=== PATIENT | male | born 1965 | race Caucasian/White ===

== ENCOUNTER 2018-11-17 03:06 | Emergency (ER) | payer OTHER ==
[~2018-11-17] VITALS: Ht 170.2 cm; Wt 96.2 kg
[2018-11-17] MEDS ORDERED: ONDANSETRON HCL/PF 4 MG/2 ML VIAL ONE (03:40)
[2018-11-17 03:56] LABS: BASOPHILS # (AUTO) 0.1 /CMM (0.0-0.2); BASOPHILS % (AUTO) 0.7 % (0.0-2.0); EOSINOPHILS % (AUTO) 1.6 % (0.0-6.0); HEMATOCRIT 29 % (39-51); HEMOGLOBIN 9.8 g/dL (13.5-17.5); LYMPHOCYTES # (AUTO) 1.1 /CMM (0.8-4.8); LYMPHOCYTES % (AUTO) 10.6 % (20.0-44.0); MEAN CORPUSCULAR HGB CONC 34 g/dl (31.0-36.0); MEAN CORPUSCULAR VOLUME 90 fL (80-96); MONOCYTES # (AUTO) 0.5 /CMM (0.1-1.30); MONOCYTES % (AUTO) 4.5 % (2.0-12.0); NEUTROPHILS # (AUTO) 8.5 /CMM (1.8-8.9); NEUTROPHILS % (AUTO) 82.6 % (43.0-81.0); PLATELET COUNT (AUTO) 318 /CMM (150-450); RED BLOOD CELL COUNT(AUTO) 3.22 MIL/uL (4.5-6.0); WHITE BLOOD COUNT (AUTO) 10.3 K/uL (4.3-11.0)
--- NOTE | 2018-11-17 03:59 | NUR ---
resting in bed comfortably. reported a mild discomfort on his left breast area. no c/o n/v. on ongoing monitoring. vss. cups at the bed side
[2018-11-17] MEDS ORDERED: ONDANSETRON HCL/PF 4 MG/2 ML VIAL IVP ONE (04:00)
[2018-11-17] MEDS ORDERED: IV NS 0.9% 500 ML BAG IV ONE (04:00)
[2018-11-17 04:03] LABS: CALCIUM, SERUM 8.3 mg/dL (8.5-10.1); POTASSIUM 4.9 mmol/L (3.5-5.1)
[2018-11-17 04:04] LABS: APPEARANCE,URINE Clear (CLEAR); BILIRUBIN,URINE Negative (NEGATIVE); BLOOD, URINE Trace-intact Ery/uL (NEGATIVE); COLOR,URINE Yellow (YELLOW); KETONES,URINE Negative (NEGATIVE); LEUKOCYTE ESTERASE ,URINE Negative (NEGATIVE); NITRITE, URINE Negative (NEGATIVE); PROTEIN,URINE >=300 mg/dl (NEGATIVE); UGLUCOSE 250 MG/DL mg/dL (NEGATIVE); UROBILINOGEN,URINE 0.2 EU/dL (0.2)
[2018-11-17 04:09] LABS: BILIRUBIN,DIRECT 0.1 mg/dL (0.0-0.2); BILIRUBIN,TOTAL 0.4 mg/dL (0.2-1.0)
[2018-11-17 04:10] LABS: ALBUMIN 3.5 g/dL (3.4-5.0); TOTAL PROTEIN, SERUM 7.3 g/dL (6.4-8.2)
--- NOTE | 2018-11-17 04:29 | NUR ---
CALLED NAI ANDERSON MD TO
--- NOTE | 2018-11-17 04:31 | NUR ---
CALLED [facility] FOR CHEST X-RAY READ.
[2018-11-17 04:46] LABS: BACTERIA,URINE Few /HPF (None Seen); SQUAMOUS EPITHELIAL CELL,UR Rare /HPF (None Seen)
[2018-11-17] MEDS ORDERED: hydrALAZINE HCL IV 20 MG VIAL ONE (05:09)
[2018-11-17] MEDS ORDERED: ASPIRIN 325 MG TABLET ONE (05:10)
[2018-11-17] MEDS ORDERED: ASPIRIN 325 MG TABLET PO ONE (05:30)
[2018-11-17] MEDS ORDERED: hydrALAZINE HCL IV 20 MG VIAL IV ONE (05:30)
--- NOTE | 2018-11-17 05:47 | NUR ---
Patient is resting comfortably in bed with eyes closed. Easily aroused. VSS
--- NOTE | 2018-11-17 07:52 | NUR ---
CALLED [facility], ROLL INSPECTOR MD FOR NAI IBANEZ.
--- NOTE | 2018-11-17 07:52 | NUR ---
Saúl ramos in [facility] - 11/17/18 at 0757 by GEREMIAS NAI HANEY CALLED, DUMPER BAILER OPERATOR FOR NAI IBANEZ.
[2018-11-17] MEDS ORDERED: NITROGLYCERIN 0.4 MG/TAB BOTTLE ONE (07:58)
[2018-11-17] MEDS ORDERED: NITROGLYCERIN 0.4 MG/TAB BOTTLE SL ONE (08:00)
--- NOTE | 2018-11-17 08:05 | NUR ---
PATIENT WAS OFFERED NITRO TAB, BP 132/86 HR 93 BUT PATIENT DENIES CHEST PAIN OR ANY DISCOMFORT AT THIS TIME. DR. COLUNGA MADE AWARE AND ORDERED TO DISCONTINUE NITRO TAB.
[2018-11-17] MEDS ORDERED: NITROGLYCERIN PACKET 1 GM PACKET ONE (08:08)
[2018-11-17] MEDS: NITROGLYCERIN PACKET 1 GM PACKET TD ONE ×2 (08:11→08:13)
[2018-11-17 08:14] VITALS: BP 156/88
--- NOTE | 2018-11-17 08:39 | NUR ---
[facility] CALLED PT ACCEPTED AT [facility] GIVE REPORT TO: [phone] ER ACCEPTING MD: DR. SHUKLA [facility] CATTLE SPRAYER AT 0905H [facility]
--- NOTE | 2018-11-17 08:48 | NUR ---
REPORT GIVEN TO LILIAN SULLIVAN AT [facility].
--- NOTE | 2018-11-17 09:00 | NUR ---
PATIENT TRANSFERRED TO [facility] ER VIA ACLS PROTOCOL. PATIENT A/OX3, DENIES CHEST PAIN OR DISCOMFORT AT THIS TIME. REPORT GIVEN TO SCREEN PRINTER HELPER. CD PROVIDED. PATIENT LEFT IN STABLE CONDITION, ACCEPTED BY DR. GUERRERO.
== END 2018-11-17 09:55 | disposition short-term general hospital (02) ==
LOC: ER 03:11
DX: R07.89 Other chest pain (principal); R11.2 Nausea with vomiting, unspecified; I12.0 Hypertensive chronic kidney disease with stage 5 chronic kidney disease or end stage renal disease; E11.22 Type 2 diabetes mellitus with diabetic chronic kidney disease; N18.6 End stage renal disease; I42.9 Cardiomyopathy, unspecified; Z99.2 Dependence on renal dialysis
CPT/HCPCS: 36415; 71045; 80048; 80076; 81001; 83690; 84484 ×2; 85025; 85730; 87086; 93005; 96374; 96375; 99285; J0360; J2405; J7040; 81000-TC